=== PATIENT | female | born 1995 | race Hispanic/Latino ===

== ENCOUNTER 2020-06-22 18:04 | Emergency (ER) | payer SELFPAY ==
[~2020-06-22] VITALS: Ht 149.9 cm; Wt 62.3 kg
[2020-06-22] MEDS ORDERED: PEPCID20 MG PO (18:27)
[2020-06-22] MEDS ORDERED: SODIUM CHLORIDE FLUSH 10 ML SYR INJ PRN (18:45)
[2020-06-22] MEDS ORDERED: SODIUM CHLORIDE 0.9% 1000ML 1,000 ML IV STA (18:53)
[2020-06-22] MEDS ORDERED: CEFTRIAXONE SOD 1 GM/NS 50 ML 50 ML IV ONE ×2 (19:00→19:51)
[2020-06-22] MEDS ORDERED: SODIUM CHLORIDE 0.9% 1000ML 1,000 ML ONE (19:51)
[2020-06-22] MEDS ORDERED: ATIVAN1 MG PO (21:23)
[2020-06-22] MEDS ORDERED: METOPROLOL TARTRATE INJ 1 MG/ML VIAL ONE (21:28)
[2020-06-22] MEDS ORDERED: METOPROLOL TARTRATE INJ 1 MG/ML VIAL IV ONE (21:30)
== END 2020-06-22 21:50 | disposition home or self-care (01) ==
LOC: FSED 18:54
DX: R00.2 Palpitations (principal); R20.2 Paresthesia of skin; F43.9 Reaction to severe stress, unspecified; D64.9 Anemia, unspecified; K21.9 Gastro-esophageal reflux disease without esophagitis
CPT/HCPCS: 70450; 71046; 80053; 81003; 82553; 84484; 85025; 93005; 99284; J0696; J7030